=== PATIENT | female | born 1990 | race Caucasian/White ===

== ENCOUNTER 2019-08-08 08:57 | Inpatient (IN) ==
[~2019-08-08 08:57] MED LIST: Famotidine 20 MG/2 ML VIAL IVP PRN; Metoclopramide 10 MG/2 ML VIAL IVP PRN; Naloxone 0.4 MG/ML INJ IVP PRN; Ondansetron 4 MG/2 ML VIAL IVP PRN
[2019-08-08] MEDS ORDERED: miSOPROStoL 25 MCG TABLET VG ONE (09:00)
[2019-08-08 09:33] LABS: Amphetamine Screen,Urine Negative ng/mL (Cutoff=1000); Barbiturate Screen,Urine Negative ng/mL (Cutoff=200); Benzodiazepines Screen,Urine Negative ng/mL (Cutoff=200); Cannabinoid Screen,Urine Negative ng/mL (Cutoff = 50); Cocaine Screen,Urine Negative ng/mL (Cutoff= 300); Opiate Screen,Urine Negative ng/mL (Cutoff=300); Phencyclidine Screen,Urine Negative ng/mL (Cutoff=25)
[2019-08-08] MEDS ORDERED: miSOPROStoL 100 MCG TABLET VG ONE (09:45)
[2019-08-08 10:17] LABS: Basophils % 0.2 %; Eosinophils # 0.1 K/mcL (0.0-0.6); Eosinophils % 1.1 %; Hematocrit 35.1 % (35.3-44.9); Hemoglobin 12.5 g/dL (11.5-15.4); Immature Granulocytes % 0.2 % (0-4); Lymphocytes % 20.9 %; Mean Corpuscular HGB Conc 35.6 g/dL (31.6-35.5); Mean Corpuscular Hemoglobin 31.1 pg (28.0-33.3); Mean Corpuscular Volume 87.3 fL (83.0-100.0); Mean Platelet Volume 9.6 fL (9.4-12.4); Monocytes # 0.4 K/mcL (0.0-1.3); Monocytes % 9.5 %; Neutrophils # 3.1 K/mcL (1.6-8.9); Platelet Count 149 K/mcL (140-400); Red Blood Count 4.02 M/mcL (3.82-4.97); Red Cell Distribution Width 12.5 % (11.5-14.5); Segmented Neutrophils % 68.1 %; White Blood Count 4.6 K/mcL (4.3-11.1)
[2019-08-08] MEDS: *HR* Nalbuphine 10 MG/ML AMPUL IVP PRN ×2 (11:31→17:15)
[2019-08-08] MEDS ORDERED: Ringers Solution, Lactated 1,000 ML IVC SCH (12:00)
[2019-08-08] MEDS: miSOPROStoL 100 MCG TABLET GTUBE SCH ×3 (14:01→21:33)
[2019-08-08] MEDS ORDERED: *HR* HYDROmorphone (PF) 1 MG/ML SYRINGE IVP PRN (18:27)
[2019-08-08] MEDS ORDERED: Epidural Premix (fent/bupiv) 110 ML EP ONE (19:21)
[2019-08-08] MEDS ORDERED: Epidural Premix (fent/bupiv) 110 ML EP SCH (19:30)
[2019-08-08] MEDS ORDERED: ceFAZolin 1,000 MG in Water for inj. (sterile) 10 ML IVP SCH (20:00)
[2019-08-08] MEDS ORDERED: Oxytocin 20 units/ LR 1000 mL 20 UNIT/1,000 ML BAG IVC ONE ×2 (21:00→23:13)
[2019-08-08] MEDS ORDERED: Ibuprofen 600 MG TABLET PO PRN ×2 (21:11→23:13)
[2019-08-08 21:47] LABS: Bilirubin,Urine Negative (Negative); Blood,Urine Negative (Negative); Clarity,Urine Clear (Clear); Color,Urine Yellow (Yellow); Glucose,Urine (UA) Normal (Normal); Ketones,Urine Negative (Negative); Leukocyte Esterase,Urine Negative (Negative); Nitrite,Urine Negative (Negative); PH,Urine 7.5 pH Units (5.0-8.0); Protein,Urine Negative (Neg-Trace); Specific Gravity,Urine 1.011 (1.010-1.025); Urobilinogen,Urine Normal (Normal)
[2019-08-08] MEDS ORDERED: Oxytocin 20 units/ LR 1000 mL 20 UNIT/1,000 ML BAG IVC SCH (23:13)
[2019-08-08] MEDS ORDERED: Acetaminophen 325 MG TABLET PO PRN (23:13)
[2019-08-09] MEDS ORDERED: Ringers Solution, Lactated 0 ML ONE (02:39)
[2019-08-09] MEDS ORDERED: *HR* Propofol 200 MG/20 ML VIAL IVP ONE (02:47)
[2019-08-09] MEDS ORDERED: *HR* Succinylcholine 200 MG/10 ML VIAL IVP ONE (02:48)
[2019-08-09] MEDS ORDERED: Lidocaine -MPF 2% 5 ML VIAL ONE (02:48)
[2019-08-09] MEDS ORDERED: *HR* Rocuronium Bromide 50 MG/5 ML VIAL ONE (02:48)
[2019-08-09] MEDS ORDERED: Ringers Solution, Lactated 1,000 ML ONE ×5 (03:01→13:11)
[2019-08-09] MEDS ORDERED: Ondansetron 4 MG/2 ML VIAL ONE ×2 (03:02→20:22)
[2019-08-09] MEDS ORDERED: Dexamethasone 4 MG/ML VIAL ONE (03:02)
[2019-08-09] MEDS ORDERED: Ketorolac 30 MG/ML VIAL ONE (03:07)
[2019-08-09] MEDS ORDERED: Morphine Sulfate 2 MG/ML SYRINGE IVP PRN (03:09)
[2019-08-09] MEDS ORDERED: Ondansetron 4 MG/2 ML VIAL IVP ONE ×2 (03:09→20:19)
[2019-08-09] MEDS ORDERED: *HR* OxyCODONE Immed Rel 5 MG TABLET PO PRN (03:09)
[2019-08-09] MEDS ORDERED: *HR* Oxytocin 10 UNIT/ML VIAL IM ONE (03:20)
[2019-08-09 05:24] LABS: Basophils % 0.2 %; Eosinophils % 0.4 %; Hematocrit 20.7 % (35.3-44.9); Immature Granulocytes % 0.4 % (0-4); Lymphocytes # 0.6 K/mcL (0.6-4.6); Lymphocytes % 11.8 %; Mean Corpuscular HGB Conc 36.2 g/dL (31.6-35.5); Mean Corpuscular Hemoglobin 31.8 pg (28.0-33.3); Mean Corpuscular Volume 87.7 fL (83.0-100.0); Mean Platelet Volume 9.3 fL (9.4-12.4); Monocytes # 0.2 K/mcL (0.0-1.3); Monocytes % 3.9 %; Neutrophils # 4.3 K/mcL (1.6-8.9); Platelet Count 107 K/mcL (140-400); Red Blood Count 2.36 M/mcL (3.82-4.97); Red Cell Distribution Width 12.4 % (11.5-14.5); Segmented Neutrophils % 83.3 %; White Blood Count 5.1 K/mcL (4.3-11.1)
[2019-08-09 05:26] LABS: Hemoglobin 7.5 g/dL (11.5-15.4)
[2019-08-09] MEDS ORDERED: Prenatal Vit/FA 1 EACH TABLET PO SCH (09:00)
[2019-08-09 11:12] LABS: Basophils % 0.2 %; Hematocrit 22.1 % (35.3-44.9); Hemoglobin 7.7 g/dL (11.5-15.4); Immature Granulocytes % 0.4 % (0-4); Lymphocytes # 0.4 K/mcL (0.6-4.6); Lymphocytes % 7.9 %; Mean Corpuscular HGB Conc 34.8 g/dL (31.6-35.5); Mean Corpuscular Hemoglobin 31.2 pg (28.0-33.3); Mean Corpuscular Volume 89.5 fL (83.0-100.0); Mean Platelet Volume 9.7 fL (9.4-12.4); Monocytes # 0.2 K/mcL (0.0-1.3); Monocytes % 2.9 %; Platelet Count 131 K/mcL (140-400); Red Blood Count 2.47 M/mcL (3.82-4.97); Red Cell Distribution Width 12.3 % (11.5-14.5); Segmented Neutrophils % 88.6 %; White Blood Count 5.6 K/mcL (4.3-11.1)
[2019-08-09] MEDS ORDERED: 0.9 % Sodium Chloride 1,000 ML ONE ×2 (13:12→17:38)
[2019-08-09] MEDS ORDERED: Artificial Tears SOLN 15 ML BOTTLE BOTH EYES SCH (17:00)
[2019-08-09 20:26] VITALS: BP 110/60
== END 2019-08-09 21:39 | disposition home or self-care (01) | DRG 806 ==
LOC: 1NENULAB
PROVIDERS: ADMIT Advanced Practice Midwife; ATTEND Advanced Practice Midwife

== ENCOUNTER 2020-07-24 11:02 | Observation (INO) ==
[2020-07-24] MEDS: Ringers Solution, Lactated 1,000 ML IVC SCH ×2 (11:48→22:21)
[2020-07-24] MEDS ORDERED: *HR* OxyCODONE Immed Rel 5 MG TABLET PO PRN (12:23)
[2020-07-24] MEDS ORDERED: Promethazine 6.25 MG in Water for inj. (sterile) 20 ML IVPB PRN (12:23)
[2020-07-24] MEDS ORDERED: Ondansetron 4 MG/2 ML VIAL IVP PRN ×3 (12:23→22:25)
[2020-07-24] MEDS ORDERED: *HR* Propofol 200 MG/20 ML VIAL IVP ONE (14:42)
[2020-07-24] MEDS ORDERED: Ondansetron 4 MG/2 ML VIAL ONE ×3 (14:43→21:15)
[2020-07-24] MEDS ORDERED: Lidocaine -MPF 2% 2 ML VIAL ONE (14:44)
[2020-07-24] MEDS ORDERED: Famotidine 20 MG/2 ML VIAL ONE (14:44)
[2020-07-24] MEDS ORDERED: Dexamethasone 4 MG/ML VIAL ONE (14:44)
[2020-07-24] MEDS ORDERED: *HR* FentaNYL (PF) 100 MCG/2 ML VIAL ONE (15:03)
[2020-07-24] MEDS ORDERED: Lidocaine HCL 4 ML Topical Solution (Laryng-O-Jet Kit Sterile Pak) TP ONE (15:03)
[2020-07-24] MEDS ORDERED: *HR* Midazolam HCl 2 MG/2 ML VIAL ONE (15:03)
[2020-07-24] MEDS ORDERED: *HR* Rocuronium Bromide 50 MG/5 ML VIAL ONE (15:03)
[2020-07-24] MEDS ORDERED: Doxycycline 100 MG CAPSULE PO ONE (15:05)
[2020-07-24] MEDS ORDERED: *HR* Belladonna Alkaloids/Opium 30 MG RECTAL SUPPOSITORY RC ONE (15:11)
[2020-07-24] MEDS ORDERED: *HR* Vasopressin 20 UNIT/ML VIAL ONE ×2 (15:16)
[2020-07-24] MEDS ORDERED: Ketorolac 30 MG/ML VIAL ONE (16:18)
[2020-07-24] MEDS: *HR* HYDROmorphone PF 0.5 MG/0.5 ML SYRINGE IVP PRN ×2 (16:54→17:00)
[2020-07-24] MEDS ORDERED: Ondansetron 4 MG/2 ML VIAL IVP ONE (18:16)
[2020-07-24] MEDS ORDERED: *HR* OxyCODONE Immed Rel 5 MG TABLET PO ONE ×2 (18:48→19:53)
[2020-07-24] MEDS: *HR* HYDROmorphone (PF) 1 MG/ML SYRINGE IVP PRN ×2 (21:00→21:35)
[2020-07-24] MEDS ORDERED: *HR* HYDROmorphone (PF) 1 MG/ML SYRINGE IVP ONE (21:06)
[2020-07-24] MEDS ORDERED: *HR* HYDROmorphone (PF) 1 MG/ML SYRINGE IVP PRN (22:08)
[2020-07-24] MEDS ORDERED: *HR* OxyCODONE ER (12 HR) 10 MG TABLET PO SCH (22:15)
[2020-07-24] MEDS: Ibuprofen 600 MG TABLET PO PRN (22:53)
[2020-07-25] MEDS: *HR* OxyCODONE/APAP 10/325 TABLET PO PRN ×2 (00:43→07:48)
[2020-07-25] MEDS: Ringers Solution, Lactated 1,000 ML IVC SCH (05:54)
[2020-07-25] MEDS: Ibuprofen 600 MG TABLET PO PRN (05:54)
[2020-07-25 07:43] VITALS: BP 101/60
== END 2020-07-25 10:40 | disposition home or self-care (01) ==
LOC: 1NENUOBS 11:02 → SAMDAY 11:02
PROVIDERS: ADMIT Student in an Organized Health Care Education/Training Program; ATTEND Student in an Organized Health Care Education/Training Program

== ENCOUNTER → 2021-07-10 05:35 | Observation (INO) ==
[2021-07-10 05:24] LABS: Bacteria,Urine Few per hpf (None-Few); Bilirubin,Urine Negative (Negative); Blood,Urine Negative (Negative); Clarity,Urine Turbid (Clear); Color,Urine Light-Yellow (Yellow); Glucose,Urine (UA) Normal (Normal); Ketones,Urine Negative (Negative); Leukocyte Esterase,Urine Negative (Negative); Mucus,Urine Few per lpf (None-Few); Nitrite,Urine Negative (Negative); PH,Urine 6.5 pH Units (5.0-8.0); Protein,Urine Trace mg/dL (Neg-Trace); RBC,Urine 0-3 per hpf (0-3); Squamous Epithelial Cell,Urine Few per hpf (None-Few); Urobilinogen,Urine Normal (Normal); WBC,Urine 0-3 per hpf (0-3)
[2021-07-10 06:04] LABS: Candida DNA Not Detected (Not Detect); Gardnerella DNA Not Detected (Not Detect); Trichomonas DNA Not Detected (Not Detect)
== END | disposition home or self-care (01) ==
LOC: 1NENULAB
PROVIDERS: ADMIT Advanced Practice Midwife; ATTEND Advanced Practice Midwife